=== PATIENT | female | born 1955 | race Hispanic/Latino ===

== ENCOUNTER → 2018-04-29 09:25 | Outpatient (CLI) | payer OTHER, SELFPAY ==
[2018-04-29 10:52] LABS: Add Manual Diff / Slide Review NO; Basophils Percent Auto 0.9 % (0-2); Eosinophils Percent Auto 2.6 % (2-4); Hematocrit 40.8 % (36-46); Hemoglobin 13.5 g/dL (12.0-16.0); Lymphocytes Percent Auto 38.4 % (25-40); Mean Corpuscular HGB Conc 33.1 % (30-36); Mean Corpuscular Volume 84.6 fL (80-100); Monocytes Percent Auto 8.2 % (3-14); Neutrophils Absolute Auto 2700 /uL (3000-5900); Neutrophils Percent Auto 49.9 % (50-75); Platelet Count 264 X10^3/uL (150-400); Red Blood Cell Count 4.82 X10^6/uL (4.0-5.2); Red Cell Distribution Width 14.2 % (11.6-14.8); White Blood Cell Count 5.4 X10^3/uL (4.5-11.0)
[2018-04-29 11:23] LABS: Alanine Aminotransferase 57 IU/L (9-52); Albumin Globulin Ratio 1.2 (1.0-2.8); Alkaline Phosphatase 84 U/L (38-126); Aspartate Aminotransferase 37 IU/L (14-36); BUN Creatinine Ratio 25.7 (6-22); Bilirubin Total 0.6 mg/dL (0.2-1.3); Blood Urea Nitrogen 18 mg/dL (7-17); C-Reactive Protein Quant 0.7 mg/dL (<1.0); Calcium 9.2 mg/dL (8.4-10.2); Carbon Dioxide 28 mmol/L (22-32); Chloride 105 mmol/L (98-107); Cholesterol 219 mg/dL (140-199); Estimated Glomerular Filt Rate > 60.0 mL/min (>60); Globulin 3.4 g/dL (1.7-4.1); Glucose 86 mg/dL (80-110); HDL Cholesterol 70 mg/dL (40-60); HEMOLYSIS < 15 (0-50); LDL Cholesterol Calculated 127 mg/dL (<100); Potassium 4.1 mmol/L (3.4-5.1); Rheumatoid Factor < 8.6 IU/mL (<12.0); Sodium 143 mmol/L (137-145); Total Protein 7.4 g/dL (6.3-8.2); Triglycerides 109 mg/dL (35-150)
[2018-04-29 11:35] LABS: Free T3, Triiodothyronine Free 4.07 pg/mL (2.77-5.27)
[2018-04-29 11:37] LABS: Erythrocyte Sedimentation Rate 13 MM/HR (0-20)
[2018-04-29 11:49] LABS: Thyroid Stimulating Hormone 2.09 uIU/mL (0.47-4.68)
[2018-05-01 18:21] LABS: ANA Screen, IFA Negative (Negative)
== END ==
PROVIDERS: PCP Physician Assistant; Visit Provider Physician Assistant
DX: Z12.11 Encounter for screening for malignant neoplasm of colon (principal); M81.0 Age-related osteoporosis without current pathological fracture; Z13.820 Encounter for screening for osteoporosis; Z01.419 Encounter for gynecological examination (general) (routine) without abnormal findings; Z12.31 Encounter for screening mammogram for malignant neoplasm of breast
CPT/HCPCS: 36415; 80053; 80061; 84443; 84481; 85025; 85651; 86038; 86140; 86430

== ENCOUNTER → 2018-06-27 08:05 | Outpatient (CLI) | payer OTHER, SELFPAY ==
--- NOTE | 2018-06-27 | DI.US.S_ITS ---
PROCEDURE: US ABDOMEN COMPLETE INDICATIONS: ELEVATED LFTS TECHNIQUE: Real-time scanning was performed of the abdominal and retroperitoneal organs, with image documentation. COMPARISON: None. FINDINGS: Liver: Liver is diffusely increased in echogenicity. No focal hepatic abnormalities identified. Normal hepatic size. Gallbladder: No gallstones identified. Normal gallbladder wall. No pericholecystic fluid. Negative sonographic Serrano sign. Biliary ducts: Intrahepatic bile ducts are non-dilated. Extrahepatic bile duct caliber measures 6.0 mm. Normal is 6-7 mm or less in diameter, or 10 mm or less post-cholecystectomy. Pancreas: Visualized portions of the pancreas are sonographically normal. Spleen: Not well-visualized. Kidneys: Kidneys are normal in size and echotexture. Right kidney measures 9.2 cm long; left kidney measures 9.8 cm long. No hydronephrosis or nephrolithiasis. No solid masses. Exophytic left renal cortical cyst measuring 4.7 x 3.0 x 2.6 cm. Aorta: Visualized aorta is normal in caliber at less than 3 cm. Iliacs: Proximal common iliac arteries are normal in caliber at less than 2.5 cm. IVC: Intrahepatic inferior vena cava is patent. Miscellaneous: No free abdominal fluid. IMPRESSION: 1. Increased hepatic echogenicity noted possibly related to hepatic steatosis but other sources of hepatocellular disease cannot be excluded. Recommend clinical correlation. 2. Exophytic left renal cyst. 3. Spleen not well visualized. Dictated by: Russell HANSEN Interpreted: Bella Fournier MD on 06/27/2018 at 9:25 Approved by: Bella Fournier M.D. on 06/27/2018 at 12:05
[2018-06-29 12:51] LABS: Hepatitis A Antibody IgM NONREACTIVE; Hepatitis Acute Panel Interp 0.02; Hepatitis B Core Antibody IgM NONREACTIVE; Hepatitis B Surface Antigen NONREACTIVE; Hepatitis C Antibody NONREACTIVE
== END ==
PROVIDERS: PCP Family Medicine; Visit Provider Family Medicine
DX: R94.5 Abnormal results of liver function studies (principal); N28.1 Cyst of kidney, acquired
CPT/HCPCS: 36415; 76700; 80074

== ENCOUNTER 2019-11-15 08:23 | Emergency (ER) | payer MEDICARE, SELFPAY ==
[2019-11-15 08:35] VITALS: BP 154/93; PULSE 65; RESP 15; TEMP 36.4; O2SAT 99; BMI 27.7
--- NOTE | 2019-11-15 08:42 | ED_ITS ---
HPI - Dental/Oral General Chief complaint: Dental/Oral Stated complaint: toothache Time Seen by Provider: 11/15/19 08:42 Source: patient Mode of arrival: Ambulatory Limitations: no limitations History of Present Illness HPI Narrative: 64-year-old female comes to the emergency department with complaint of toothache. Patient states several months ago she has had a cracked tooth that required antibiotics she was referred to Dr. Gomez for dental care as she would likely need sedation as she has had bad experiences before. Patient states she just kind of let things go and then has had recurrence of symptoms with increasing pain over the cracked tooth swelling of her face and lips. Patient has not had fevers, no nausea or vomiting. She has some pain radiating to the right ear. She has not had any lumps or masses that she has noted. She denies any other medical issues. Denies any medication allergies. Related Data Previous Rx's Medication Instructions Recorded triamcinolone acetonide 1 lizbeth TOPICAL BIDP PRN #15 gm 03/07/18 meloxicam [Mobic] 7.5 mg PO DAILY PRN #10 tab 11/15/19 penicillin V potassium 500 mg PO QID #40 tab 11/15/19 Allergies Allergy/AdvReac Type Severity Reaction Status Date / Time tree and shrub pollen Allergy Mild Sneezing, Verified 11/15/19 08:35 red, watery eyes Review of Systems Review of Systems ROS Unobtainable: All systems reviewed & are unremarkable except as noted in HPI and below Patient History Family History (Updated 03/01/18 @ 00:00 by Conversion Provider) Sister Age: 64 Aneurysm Social History marital status: lives independently: Yes pets and animals: Yes education level: high school occupational status: disabled (Retired) kelly/rastafarian: [employer] other: sewing,waking,movies, etc seatbelt use: always water heater temp set < 120 deg: No working smoke detector in home: Yes fire extinguisher in home: Yes carbon monox detector in home: Yes firearms in home: No do you feel safe at home: Yes Smoking Status: Never smoker alcohol intake: current (Rare/occasional) substance use type: does not use during the past year weight has: increased > 10 lbs well-balanced diet: daily or most days daily servings fruits/ve-1 caffeine: Yes eating out: rarely or never Type(s) of exercise: walking frequency: daily Smoking Status: Never smoker Exam Narrative Exam Narrative: GEN: well nourished, well appearing female, alert and oriented x 3, patient appears to be in mild distress. HEENT: Atraumatic, pupils are equal round reactive to light, extraocular movements are intact, nares are clear, TMs are clear with no fluid, there is no conjunctival pallor. Throat is clear without any exudates, erythema, tonsillar enlargement or uvular deviation, patient does have a cracked tooth with swelling adjacent but no fluctuance, patient also has swelling of the right upper cheek and a little bit of the lower cheek. There's no redness, there's no warmth or fluctuance noted. No periorbital edema. No stridor, no swelling of the oropharynx. Patient has poor dentition in general. HEART: Regular rate and rhythm without murmur, clicks, rubs. LUNGS:Lungs clear to auscultation, no wheezes, rales, crackles, chest moves symmetrically ABD:bowel sounds normal, soft, non-tender, no guarding, rebound, rigidity, no ma sses noted, no hepatosplenomegaly MSCL: Non-tender, no muscle atrophy, muscles strength 5/5 upper and lower extremities, full range of motion, normal gait NEURO:CN 2-12 intact, sensation normal Initial Vital Signs Initial Vital Signs: Vital Signs Temperature 97.6 F 11/15/19 08:35 Pulse Rate 65 11/15/19 08:35 Respiratory Rate 15 11/15/19 08:35 Blood Pressure 154/93 H 11/15/19 08:35 Pulse Oximetry 99 11/15/19 08:35 Course Orders Ordered: Discontinued Medications Ketorolac Tromethamine (Toradol) 30 mg IM NOW ONE Stop: 11/15/19 09:13 Last Admin: 11/15/19 09:44 Dose: 30 mg Documented by: NU Vital Signs Vital signs: Vital Signs - 8 hr 11/15/19 08:35 Temperature 97.6 F Pulse Rate 65 Respiratory Rate 15 Blood Pressure 154/93 H Pulse Oximetry 99 MDM - Dental/Oral MDM Narrative Medical decision making narrative: Discussed with patient plan of for course of antibiotics, showed a Toradol in department and short course of pain medication. Patient still has contact information for Dr. Gomez and we discussed that she does need to follow-up. Discharge Plan Departure Patient Disposition: Home Clinical Impression: Dental infection Discharge Date/Time: 11/15/19 10:16 Activity Restrictions/Additional Instructions: Follow-up with Dr. Gomez in the next week call for an appointment. Take antibiotics until they are completely gone. Take pain medication as prescribed. You may take Tylenol with this medication you may take up to a 1000 mg every 8 hours as needed. Return to the ER for fevers greater 100.4 F, rapidly worsening swelling, swelling of your tongue, throat, increasing swelling or redness of your face, hoarseness or muffled voice, inability to swallow your saliva or secretions, stridor high-pitched wheezing or other new or concerning symptoms. Prescriptions: New penicillin V potassium 500 mg tablet 500 mg PO QID Qty: 40 RF: 0 meloxicam [Mobic] 7.5 mg tablet 7.5 mg PO DAILY PRN (Reason: pain) Qty: 10 RF: 0 No Action triamcinolone acetonide 0.1 % cream 1 lizbeth Topical BIDP PRNQty: 15 RF: 1 Referrals: Jenny Humphreys DO [Primary Care Provider] -
[2019-11-15] MEDS: KETOROLAC 60 MG/2 ML VIAL 30 MG IM (09:44)
[2019-11-15 10:01] VITALS: BP 141/91; PULSE 64; RESP 16; O2SAT 98
== END 2019-11-15 10:16 | disposition home or self-care (01) ==
PROVIDERS: Emergency Provider Emergency Medicine; PCP Family Medicine
DX: K04.7 Periapical abscess without sinus (principal)
CPT/HCPCS: 96372; 99281; 99283; J1885

== ENCOUNTER 2019-11-23 12:30 | Emergency (ER) | payer OTHER, SELFPAY ==
[2019-11-23 12:38] VITALS: BP 151/113; PULSE 66; RESP 21; TEMP 36.5; O2SAT 100; BMI 27.3
--- NOTE | 2019-11-23 12:43 | ED_ITS ---
HPI - Fall General Chief Complaint: Fall Stated Complaint: GLF, knocked her wind out Time Seen by Provider: 11/23/19 12:30 Source: patient Mode of arrival: Wheelchair Limitations: no limitations History of Present Illness HPI Narrative: 64-year-old nonsmoker with noncontributory medical history presents with a friend in the chief complaint of a ground level fall resulting in left-sided shoulder and hip pain. The patient was walking and slipped on a wet would a walkway and landed on her left shoulder and hip. She denies any head or neck pain and has full recall. Her left shoulder hurts to palpation and with any range of motion. Additionally her left elbow hurts to palpation and with range of motion. She denies numbness, tingling or weakness. Additionally she complains of some midline lumbar pain and left hip pain, both of which are worse with motion and improved with rest. She denies any numbness, tingling or weakness. She denies any trouble controlling bowel or bladder. MD complaint: fall Onset (ago): minute(s) Fall from: standing Fall witnessed: no Place fall occurred: work Loss of consciousness: none Prolonged down time: no Symptoms prior to fall: none Context: tripped/slipped Location of injury: back Location of injury - extremities: Left: shoulder and elbow Severity: moderate Quality: sharp and aching Associated symptoms (after fall): denies Related Data Previous Rx's Medication Instructions Recorded triamcinolone acetonide 1 lizbeth TOPICAL BIDP PRN #15 gm 03/07/18 meloxicam [Mobic] 7.5 mg PO DAILY PRN #10 tab 11/15/19 penicillin V potassium 500 mg PO QID #40 tab 11/15/19 ketorolac 10 mg PO Q6H PRN #14 tab 11/23/19 Allergies Allergy/AdvReac Type Severity Reaction Status Date / Time tree and shrub pollen Allergy Mild Sneezing, Verified 11/15/19 08:35 red, watery eyes Review of Systems Constitutional Constitutional: Denies chills, Denies fatigue, Denies fever(s), Denies frequent falls, Denies lethargy and Denies weakness Eyes Eyes: Denies change in vision, Denies eye discharge, Denies irritation and Denies loss of vision ENT Ears, Nose, Mouth, and Throat: Denies change in voice, Denies dizziness, Denies neck pain, Denies sore throat and Denies throat swelling Cardiovascular Cardiovascular: Denies chest pain, Denies irregular heart rhythm, Denies lightheadedness, Denies palpitations, Denies dyspnea, Denies dyspnea on exertion and Denies orthopnea Respiratory Respiratory: Denies cough, Denies dyspnea, Denies dyspnea on exertion and Denies wheezing Gastrointestinal Gastrointestinal: Denies abdominal pain, Denies change in bowel habits, Denies diarrhea, Denies nausea and Denies vomiting Genitourinary Genitourinary: Denies hematuria, Denies flank pain, Denies urinary incontinence and Denies urinary urgency Musculoskeletal Musculoskeletal: Reports abnormal gait, Reports back pain, Reports limited range of motion, Denies muscle weakness, Denies neck pain, Denies numbness and Denies tingling Integumentary/Breasts Skin/Breast: Denies pruritus, Denies erythema, Denies rash and Denies wounds Neurologic Neurologic: Reports abnormal gait, Denies behavioral changes, Denies confusion, Denies dizziness, Denies frequent falls, Denies loss of vision, Denies numbness, Denies tingling and Denies weakness Psychiatric Psychiatric: Denies anxiety, Denies behavioral changes, Denies confusion, Denies depression, Denies homicidal ideation and Denies suicidal ideation Endocrine Endocrine: Denies fatigue, Denies flushing and Denies palpitations Hematologic/Lymphatic Hematologic/Lymphatic: Denies easy bruising Allergic/Immunologic Allergic/Immunologic: Denies urticaria, Denies throat swelling and Denies wheezing Patient History Family History Sister Age: 64 Aneurysm Social History marital status: lives independently: Yes pets and animals: Yes education level: high school occupational status: disabled (Retired) kelly/presybeterian: Buddhist other: sewing,waking,movies, etc seatbelt use: always water heater temp set < 120 deg: No working smoke detector in home: Yes fire extinguisher in home: Yes carbon monox detector in home: Yes firearms in home: No do you feel safe at home: Yes Smoking Status: Never smoker alcohol intake: current (Rare/occasional) substance use type: does not use during the past year weight has: increased > 10 lbs well-balanced diet: daily or most days daily servings fruits/ve-1 caffeine: Yes eating out: rarely or never Type(s) of exercise: walking frequency: daily Smoking Status: Never smoker alcohol intake frequency: a few times a month Substance Use Type: does not use Exam Narrative Exam Narrative: GENERAL: [64] year old patient appears stated age. She is thin and tearful, obviously uncomfortable HEAD: Atraumatic. Normocephalic. EYES: Pupils equal round and reactive. Extraocular motions intact. No scleral icterus. No injection or drainage. ENT: Nose without bleeding, purulent drainage. Throat without erythema, tonsillar hypertrophy or exudate. Airway patent. NECK: Trachea midline. Non tender CARDIOVASCULAR: Regular rate and rhythm without murmurs, gallops, or rubs. RESPIRATORY: Clear to auscultation. Breath sounds equal bilaterally. No wheezes, rales, or rhonchi. GASTROINTESTINAL: Abdomen soft, non-tender, nondistended. EXTREMITIES: Left shoulder tender to palpation and full but painful range of motion. Closed and NV intact. No obvious deformity. Left elbow tender to palpate with painful but full range of motion and a small superficial abrasion overlying the lateral elbow. Patient tender to palpation in left hip, no sh ortening or external rotation, no numbness, tingling or weakness BACK: Patient has midline back pain in the lumbar region without step-offs, ecchymosis or swelling. NEURO: AOx3. SKIN: No rash or erythema of visible areas Initial Vital Signs Initial Vital Signs: Vital Signs Temperature 97.7 F 11/23/19 12:38 Pulse Rate 66 11/23/19 12:38 Respiratory Rate 21 11/23/19 12:38 Blood Pressure 151/113 H 11/23/19 12:38 Pulse Oximetry 100 11/23/19 12:38 Course Orders Ordered: ED Orders 11/23/19 13:01 XR elbow LT min 3V Stat XR hip w pel if done LT 2V Stat XR lumbar spine 2-3V Stat XR shoulder LT min 2V Stat Vital Signs Vital signs: Vital Signs - 8 hr 11/23/19 12:38 11/23/19 14:42 Temperature 97.7 F Pulse Rate 66 67 Respiratory Rate 21 18 Blood Pressure 151/113 H Blood Pressure [Right Arm] 171/56 H Pulse Oximetry 100 100 Discharge Plan Departure Patient Disposition: Home Clinical Impression: Contusion of hip Qualifiers: Encounter type: initial encounter Laterality: left Qualified Code(s): S70.02XA - Contusion of left hip, initial encounter Shoulder sprain Qualifiers: Encounter type: initial encounter Shoulder sprain type: unspecified sprain Laterality: left Qualified Code(s): S43.402A - Unspecified sprain of left shoulder joint, initial encounter Acute lumbar myofascial strain Qualifiers: Encounter type: initial encounter Qualified Code(s): S39.012A - Strain of muscle, fascia and tendon of lower back, initial encounter Discharge Date/Time: 11/23/19 14:43 Instructions: How to Prevent Falls Activity Restrictions/Additional Instructions: *You have been diagnosed with [ multiple sprains, strains, and contusions ] *What to do: *Take medications as directed *Follow up with your primary care provider in 2-3 days, call for an appointment. Let them know you were seen in the Emergency Department and that we ask that you be seen in follow up *Return to ER if you should have any new, worsening or concerning symptoms Prescriptions: New ketorolac 10 mg tablet 10 mg PO Q6H PRN (Reason: pain) Qty: 14 RF: 0 No Action triamcinolone acetonide 0.1 % cream 1 lizbeth Topical BIDP PRNQty: 15 RF: 1 penicillin V potassium 500 mg tablet 500 mg PO QID Qty: 40 RF: 0 meloxicam [Mobic] 7.5 mg tablet 7.5 mg PO DAILY PRN (Reason: pain) Qty: 10 RF: 0 Referrals: Jenny Humphreys DO [Primary Care Provider] -
--- NOTE | 2019-11-23 13:01 | DI.RAD.S_ITS ---
PROCEDURE: XR ELBOW LT MIN 3V INDICATIONS: fall with severe elbow pain TECHNIQUE: 3 views of the elbow were acquired. COMPARISON: None. FINDINGS: Bones: No fractures or dislocations. No suspicious bony lesions. Soft tissues: No elbow joint effusion. No suspicious soft tissue calcifications. IMPRESSION: No acute fracture. No osseous lesion. If symptoms and/or clinical suspicion for pathology persist, further assessment with repeat, or advanced imaging (e.g., CT, MRI, or bone scan) may be helpful for further assessment. Dictated by: Cindi Saucedo M.D. on 11/23/2019 at 14:24 Approved by: Cindi Saucedo M.D. on 11/23/2019 at 14:25
--- NOTE | 2019-11-23 13:01 | DI.RAD.S_ITS ---
PROCEDURE: XR LUMBAR SPINE 2-3V INDICATIONS: fall with severe midline lumbar pain TECHNIQUE: 3 views of the lumbar spine were acquired. COMPARISON: None. FINDINGS: Bones: 5 [id number] vertebrae are present. Multilevel endplate osteophytes and disc space narrowing. Facet hypertrophy throughout the mid and lower lumbar spine. There is normal bony alignment. No vertebral body compression fractures. No suspicious bony lesions. Soft tissues: Overlying bowel gas pattern is normal. No suspicious soft tissue calcifications. IMPRESSION: Multilevel degenerative disc and facet disease. No acute fracture. No osseous lesion. If symptoms and/or clinical suspicion for pathology persist, further assessment with repeat, or advanced imaging (e.g., CT, MRI, or bone scan) may be helpful for further assessment. Dictated by: Cindi Saucedo M.D. on 11/23/2019 at 14:23 Approved by: Cindi Saucedo M.D. on 11/23/2019 at 14:23
--- NOTE | 2019-11-23 13:01 | DI.RAD.S_ITS ---
PROCEDURE: XR SHOULDER LT MIN 2V INDICATIONS: fall with severe shoulder pain TECHNIQUE: 3 views of the shoulder were acquired. COMPARISON: None. FINDINGS: Bones: No fractures or dislocations. No suspicious bony lesions. Visualized ribs appear intact. Periarticular osteophyte formation at the acromioclavicular and glenohumeral joints. Soft tissues: No suspicious soft tissue calcifications. IMPRESSION: Osteoarthritis. No acute fracture. No osseous lesion. If symptoms and/or clinical suspicion for pathology persist, further assessment with repeat, or advanced imaging (e.g., CT, MRI, or bone scan) may be helpful for further assessment. Dictated by: Cindi Saucedo M.D. on 11/23/2019 at 14:24 Approved by: Cindi Saucedo M.D. on 11/23/2019 at 14:24
--- NOTE | 2019-11-23 13:01 | DI.RAD.S_ITS ---
PROCEDURE: XR HIP W PEL IF DONE LT 2V INDICATIONS: fall with severe L hip pain TECHNIQUE: AP pelvis with lateral view(s) of the left hip(s). COMPARISON: None. FINDINGS: Bones: No fractures or dislocations. Pelvic ring appears intact. No suspicious bony lesions. Soft tissues: The visualized bowel gas pattern is normal. No suspicious soft tissue calcifications. IMPRESSION: No acute fracture. No osseous lesion. If symptoms and/or clinical suspicion for pathology persist, further assessment with repeat, or advanced imaging (e.g., CT, MRI, or bone scan) may be helpful for further assessment. Dictated by: Cindi Saucedo M.D. on 11/23/2019 at 14:24 Approved by: Cindi Saucedo M.D. on 11/23/2019 at 14:24
[2019-11-23 14:42] VITALS: BP 171/56; PULSE 67; RESP 18; O2SAT 100
== END 2019-11-23 14:43 | disposition home or self-care (01) ==
PROVIDERS: Emergency Provider Emergency Medicine; PCP Family Medicine
DX: S70.02XA Contusion of left hip, initial encounter (principal); S43.402A Unspecified sprain of left shoulder joint, initial encounter; S39.012A Strain of muscle, fascia and tendon of lower back, initial encounter; W01.0XXA Fall on same level from slipping, tripping and stumbling without subsequent striking against object, initial encounter; Y99.0 Civilian activity done for income or pay
CPT/HCPCS: 72100; 73030; 73080; 73502; 99281; 99283